=== PATIENT | male | born 1970 | race Two or more races ===

== ENCOUNTER 2019-01-07 16:35 | Emergency (ER) | payer SELFPAY ==
[2019-01-07 17:06] LABS: CHLORIDE,CL 102 mEq/L (98-106); SODIUM,NA 138 mEq/L (136-145)
--- NOTE | 2019-01-07 17:46 | EDM.PDOC ---
ED HPI GENERAL MEDICAL PROBLEM - General Chief Complaint: General Stated Complaint: MEDICAL SCREENING Time Seen by Provider: 01/07/19 16:35 Source of Information: Reports: Patient History Limitations: Reports: No Limitations - History of Present Illness INITIAL COMMENTS - FREE TEXT/NARRATIVE: Pt is in today stating that he is spiraling mentally. Has feeling where he is getting more anxious and not dealing well with life. Did have overdose in August where he was on ventilator and in ER for about 10 days where he OD on clonidine and other meds. Does have PTSD and bipolar with depression. He states that he has no suicidal plan currently but feels that he is getting there. Doesn't feel like he has any support at home to help him as his is traveling nurse and is out of state at this time. He is currently off of all of his meds as he doesn't have any insurance. [facility] did call the [facility] and they suggested he comes here for eval. Onset: Gradual Duration: Week(s): - Related Data Allergies Allergy/AdvReac Type Severity Reaction Status Date / Time codeine Allergy Cannot Verified 01/07/19 17:03 Remember midazolam [From Versed] Allergy Cannot Verified 01/07/19 17:03 Remember Home Meds: Home Meds Montelukast [Singulair] 10 mg PO DAILY 01/07/19 [History] Past Medical History HEENT History: Reports: Sinusitis Respiratory History: Reports: Asthma Neurological History: Reports: Brain Injury, Head Trauma Psychiatric History: Reports: Bipolar, Depression, PTSD, Suicide Attempt Oncologic (Cancer) History: Reports: Hodgkin's Lymphoma, Non-Hodgkin's Lymphoma - Past Surgical History HEENT Surgical History: Reports: Myringotomy w Tube(s), Other (See Below) Other HEENT Surgeries/Procedures: SINUS SURGERY Cardiovascular Surgical History: Reports: Cardiac Ablation Musculoskeletal Surgical History: Reports: Arthroscopic Knee, Shoulder Surgery Other Oncologic Surgeries/Procedures: 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 Denies: Confusion, Suicidal Ideation ED EXAM, GENERAL - Physical Exam Exam: See Below Exam Limited By: No Limitations General Appearance: Alert, WD/WN, Anxious Respiratory/Chest: No Respiratory Distress, Lungs Clear, Normal Breath Sounds Cardiovascular: Regular Rate, Rhythm, No Edema Neurological: Alert, Oriented Psychiatric: Anxious, Depressed Mood, Flat Affect. No: Tearful Skin Exam: Warm, Dry, Intact Course - Vital Signs Last Recorded V/S: Last Vital Signs Temp 97.2 F 01/07/19 16:43 Pulse 110 H 01/07/19 16:43 Resp 18 01/07/19 16:43 BP 117/89 01/07/19 16:43 Pulse Ox 97 01/07/19 16:43 - Orders/Labs/Meds Labs: Laboratory Tests 01/07/19 01/07/19 01/07/19 Range/Units 16:40 16:40 17:05 WBC 7.4 (5.0-10.0) 10^3/uL RBC 5.74 (4.50-6.00) 10^6/uL Hgb 16.2 (14.0-18.0) g/dL Hct 47.9 (40.0-54.0) % MCV 83.4 (82.0-94.0) fL MCH 28.2 (27.0-32.0) pg MCHC 33.8 (33.0-38.0) g/dL RDW Coeff of Pancho 14.9 (11.0-15.0) % Plt Count 237 (150-400) 10^3/uL Neut % (Auto) 65.4 (35-85) % Lymph % (Auto) 26.9 (10-55) % [place] % (Auto) 7.1 (0-16) % Eos % (Auto) 0.5 (0-5) % Baso % (Auto) 0.1 (0-3) % Neut # (Auto) 4.85 (1.80-7.00) 10^3/uL Lymph # (Auto) 2.00 (1.00-4.80) 10^3/uL [place] # (Auto) 0.53 (0.00-0.80) 10^3/uL Eos # (Auto) 0.04 (0.00-0.45) 10^3/uL Baso # (Auto) 0.01 10^3/uL Sodium 138 (136-145) mEq/L Potassium 3.9 (3.5-5.0) mEq/L Chloride 102 (98-106) mEq/L Carbon Dioxide 26 (21-32) mmol/L BUN 13 (7-18) mg/dL Creatinine 1.2 (0.7-1.3) mg/dL Est Cr Clr Drug Dosing 68.85 mL/min Estimated GFR (MDRD) > 60 (>=60) mL/min Glucose 103 H (75-99) mg/dL Calcium 10.4 H (8.4-10.1) mg/dL Urine Opiates Screen Negative (NEGATIVE) Ur Oxycodone Screen Negative (NEGATIVE) Urine Methadone Screen Negative (NEGATIVE) Ur Barbiturates Screen Negative (NEGATIVE) U Tricyclic Antidepress Negative (NEGATIVE) Ur Phencyclidine Scrn Negative (NEGATIVE) Ur Amphetamine Screen Negative (NEGATIVE) U Methamphetamines Scrn Negative (NEGATIVE) Urine MDMA Screen Negative (NEGATIVE) U Benzodiazepines Scrn Negative (NEGATIVE) Urine Cocaine Screen Negative (NEGATIVE) U Marijuana (THC) Screen Negative (NEGATIVE) - Re-Assessments/Exams Free Text/Narrative Re-Assessment/Exam: 01/07/19 1730 Talked to M[facility] at [facility] in [place] and they are willing to take him. [facility] department contacted and he will transport him to [facility] in [place] Departure - Departure Time of Disposition: 18:03 Disposition: Home, Self-Care 01 Condition: Fair Clinical Impression: Depression Qualifiers: Depression Type: major depressive disorder Major depression recurrence: recurrent Active/Remission status: currently active Major depression episode severity: moderate Qualified Code(s): F33.1 - Major depressive disorder, recurrent, moderate - Discharge Information *PRESCRIPTION DRUG MONITORING PROGRAM REVIEWED*: Not Applicable *COPY OF PRESCRIPTION DRUG MONITORING REPORT IN PATIENT DELORES: Not Applicable Referrals: PCP,None [Primary Care Provider] - Additional Instructions: will go to [facility] with [facility] - Problem List & Annotations (1) Depression SNOMED Code(s): 37051004 Code(s): F32.9 - MAJOR DEPRESSIVE DISORDER, SINGLE EPISODE, UNSPECIFIED Status: Acute Current Visit: Yes Qualifiers: Depression Type: major depressive disorder Major depression recurrence: recurrent Active/Remission status: currently active Major depression episode severity: moderate Qualified Code(s): F33.1 - Major depressive disorder, recurrent, moderate - Problem List Review Problem List Initiated/Reviewed/Updated: Yes
== END 2019-01-07 18:15 | disposition home or self-care (01) ==
LOC: CC.ED 16:35
DX: F33.1 Major depressive disorder, recurrent, moderate (principal); F17.210 Nicotine dependence, cigarettes, uncomplicated; F43.10 Post-traumatic stress disorder, unspecified; Z88.5 Allergy status to narcotic agent; Z88.8 Allergy status to other drugs, medicaments and biological substances; Z79.899 Other long term (current) drug therapy; Z85.72 Personal history of non-Hodgkin lymphomas
CPT/HCPCS: 36415; 80048; 80305-QW; 85025; 99282